=== PATIENT | male | born 1950 | race Caucasian/White ===

== ENCOUNTER → 2024-01-04 09:57 | Outpatient (CLI) | payer MEDICARE, SELFPAY | PROVIDERS: Visit Provider Nurse Practitioner Family | DX: R35.0 Frequency of micturition (principal) | CPT/HCPCS: 87077; 87086; 87147; 87186 ==

== ENCOUNTER 2024-01-09 19:24 | Emergency (ER) | payer MEDICARE, SELFPAY ==
[2024-01-09] VITALS (7 sets, daily range): BP systolic 137–160; BP diastolic 80–90; PULSE 67–118; RESP 18–23; TEMP 37.2–37.7; O2SAT 94–98; BMI 33.4
[2024-01-09 20:00] LABS: Add Manual Diff / Slide Review NO; Basophils Absolute Auto 100 /uL (0-100); Basophils Percent Auto 0.5 % (0-2); Eosinophils Absolute Auto 100 /uL (0-450); Eosinophils Percent Auto 0.3 % (2-4); Hematocrit 44.7 % (41-53); Hemoglobin 14.8 g/dL (13.5-17.5); Lymphocytes Absolute Auto 700 /uL (1100-4500); Lymphocytes Percent Auto 4.7 % (25-40); Mean Corpuscular HGB Conc 33.2 % (30-36); Mean Corpuscular Volume 87.3 fL (80-100); Monocytes Absolute Auto 1000 /uL (0-900); Monocytes Percent Auto 6.7 % (3-14); Neutrophils Absolute Auto 13400 /uL (1500-7000); Neutrophils Percent Auto 87.8 % (50-75); Platelet Count 342 X10^3/uL (150-400); Red Blood Cell Count 5.12 X10^6/uL (4.5-5.9); Red Cell Distribution Width 13.1 % (11.6-14.8); White Blood Cell Count 15.2 X10^3/uL (4.5-11.0)
--- NOTE | 2024-01-09 20:00 | ED.RECABL ---
HPI - Recheck/Abnormal Lab/Rx General Chief Complaint: Recheck/Abnormal Lab/Rx Stated Complaint: states UTI and feels crappy Time Seen by Provider: 01/09/24 19:29 Source: patient Mode of arrival: Ambulatory History of Present Illness HPI narrative: 73-year-old male presents for general malaise. He states that several days ago he was diagnosed with a UTI and given Macrobid, which he states he has been taking, but he still has frequency and does not feel like he is improving. States that he feels generally unwell. Also reporting lower abdominal pain. Patient states that he thinks that he may have an obstruction. Reports normal bowel movements Related Data Previous Rx's Medication Instructions Recorded nitrofurantoin 100 mg PO Q12H 7 days #14 caps 01/04/24 monohydrate/macrocrystals 100 mg capsule (Macrobid) cefpodoxime 200 mg tablet 200 mg PO Q12H #14 tabs 01/09/24 tamsulosin 0.4 mg capsule (Flomax) 0.4 mg PO DAILY #30 caps 01/09/24 fluconazole 150 mg tablet 150 mg PO DAILY #7 tabs 01/10/24 metformin 500 mg tablet 500 mg PO BID #60 tabs 01/10/24 Allergies Allergy/AdvReac Type Severity Reaction Status Date / Time No Known Drug Allergies Allergy Verified 01/09/24 19:28 Patient History Social History Smoking Status: Never smoker Smoking Status: Never smoker Exam Initial Vital Signs Initial Vital Signs: Vital Signs Temperature 98.9 F 01/09/24 19:29 Pulse Rate 67 01/09/24 19:29 Respiratory Rate 18 01/09/24 19:29 Blood Pressure 141/80 H 01/09/24 19:29 Pulse Oximetry 97 01/09/24 19:29 Oxygen Delivery Method Room Air 01/09/24 19:29 Const: Awake, alert, no acute distress, nontoxic appearing Cardiac: regular rate, regular rhythm RESP: unlabored, clear bilaterally, no wheezing GI: Soft, nontender, nondistended, no rebound, no guarding MSK: Atraumatic, full range of motion, pulses equal Skin: Warm, Dry, intact, no rashes Neuro: AO x3, CN II-XII grossly intact, moves all extremities Course Orders Ordered: ED Orders 01/09/24 19:43 UA Complete [Urinalysis and Microscopic] Stat Urine Culture Stat 01/09/24 19:45 CBC Auto Diff [Complete Blood Count AUTO DIFF] Stat CMP [Comprehensive Metabolic Panel] Stat 01/09/24 19:59 CT abdomen pelvis w con Stat Discontinued Medications Sodium Chloride (Normal Saline 0.9%) 1,000 mls @ 1,000 mls/hr IV BOLUS ONE Stop: 01/09/24 21:27 Last Infusion: 01/09/24 21:41 Dose: Infused Documented By: Admin: 01/09/24 20:38 Dose: 1,000 mls/hr Documented By: JANICE Ceftriaxone Sodium 2,000 mg/ (Sodium Chloride) 100 mls @ 200 mls/hr IV NOW ONE Stop: 01/09/24 21:09 Last Infusion: 01/09/24 22:03 Dose: Infused Documented By: Admin: 01/09/24 21:19 Dose: 200 mls/hr Documented By: YUMIKO Vital Signs Vital signs: Vital Signs - 8 hr 01/09/24 19:29 01/09/24 20:52 01/09/24 20:52 Temperature 98.9 F Pulse Rate 67 116 H Respiratory Rate 18 Blood Pressure 141/80 H 137/87 Pulse Oximetry 97 98 Oxygen Delivery Method Room Air 01/09/24 21:00 01/09/24 21:00 01/09/24 21:24 Temperature 99.9 F H Pulse Rate 111 H Respiratory Rate 22 Blood Pressure 154/90 H 160/80 H Pulse Oximetry Oxygen Delivery Method 01/09/24 21:24 01/09/24 21:30 01/09/24 21:30 Temperature Pulse Rate 117 H 118 H Respiratory Rate 20 23 Blood Pressure 141/87 H Pulse Oximetry 96 98 Oxygen Delivery Method 01/09/24 22:00 01/09/24 22:09 Temperature Pulse Rate 106 H 91 H Respiratory Rate 20 Blood Pressure Pulse Oximetry 94 94 Oxygen Delivery Method Room Air Room Air MDM - Recheck/Abnormal Lab/Rx Lab Data 01/09/24 19:45 01/09/24 19:45 Labs: Lab Results 01/09/24 01/09/24 Range/Units 19:43 19:45 WBC 15.2 H (4.5-11.0) X10^3/uL RBC 5.12 (4.5-5.9) X10^6/uL Hgb 14.8 (13.5-17.5) g/dL Hct 44.7 (41-53) % MCV 87.3 (80-100) fL MCH 29.0 (26-34) PG MCHC 33.2 (30-36) % RDW 13.1 (11.6-14.8) % Plt Count 342 (150-400) X10^3/uL Neut % (Auto) 87.8 H (50-75) % Lymph % (Auto) 4.7 L (25-40) % [place] % (Auto) 6.7 (3-14) % Eos % (Auto) 0.3 L (2-4) % Baso % (Auto) 0.5 (0-2) % Neut # (Auto) 00496 H (8864-1622) /uL Lymph # (Auto) 700 L (7244-8729) /uL [place] # (Auto) 1000 H (0-900) /uL Eos # (Auto) 100 (0-450) /uL Baso # (Auto) 100 (0-100) /uL Sodium 128 L (137-145) mmol/L Potassium 4.3 (3.4-5.1) mmol/L Chloride 91 L (98-107) mmol/L Carbon Dioxide 30 (22-32) mmol/L BUN 32 H (9-20) mg/dL Creatinine 1.12 (0.66-1.25) mg/dL Estimated GFR > 60 (>60) mL/min BUN/Creatinine Ratio 28.6 H (6-22) Glucose 543 H* (80-110) mg/dL Calcium 8.7 (8.4-10.2) mg/dL Total Bilirubin 0.9 (0.2-1.3) mg/dL AST 24 (17-59) IU/L ALT 20 (<50) IU/L Alkaline Phosphatase 185 H (38-126) U/L Total Protein 6.8 (6.3-8.2) g/dL Albumin 3.6 (3.5-5.0) g/dL Globulin 3.2 (1.7-4.1) g/dL Albumin/Globulin Ratio 1.1 (1.0-2.8) Urine Color Yellow Urine Appearance Cloudy Urine pH 5.5 (4.5-8.0) Ur Specific [place] <=1.005 (1.000-1.035) Urine Protein Negative (Negative) Urine Glucose (UA) 3+ H (Negative) g/dL Urine Ketones 1+ H (NEGATIVE) Urine Occult Blood 3+ H (Negative) Urine Nitrate Negative (Negative) Urine Bilirubin Negative (NEGATIVE) Urine Urobilinogen 1.0 (0.2) E.U./dL Ur Leukocyte Esterase 1+ H (NEGATIVE) Urine RBC 0-1/hpf (0-5/HPF) Urine WBC 30-100/hpf H (0-5/HPF) Ur Squamous Epith Cells None seen (0-5/HPF) Urine Bacteria Moderate (10-30) H (None) Urine Yeast 1-5/hpf H (None) Ur Culture Indicated? Specimen cultured Vol Urine Centrifuged 10ml (spun) Imaging Data CT scan - abdomen/pelvis: Radiologist's Impression: PROCEDURE: CT ABDOMEN PELVIS W CON INDICATIONS: 'I HAVE AN OBSTRUCTION' TECHNIQUE: After the administration of intravenous contrast, axial sections acquired from the lung bases to the pubic symphysis. Coronal and sagittal reformats were performed. For radiation dose reduction, the following was used: automated exposure control, adjustment of mA and/or kV according to patient size. COMPARISON: None. FINDINGS: Image quality: Diagnostic Lower chest: Bibasilar scarring/atelectasis. Normal heart size Liver: Unremarkable Gallbladder and biliary system: Nondilated. No discrete radiopaque gallstones Pancreas: Mildly atrophic parenchyma. No ductal dilation Spleen: Nonenlarged Adrenals: Right adrenal mild thickening Kidneys: 1 x 0.8 x 0.7 mm calcified stone in the right distal ureter with moderate upstream hydroureteronephrosis. There is a delayed nephrogram on the right. Bosniak 1 and 2 renal lesions are present, for which no dedicated followup is necessary per latest proposed guidelines. Vessels and lymph nodes: The main portal vein is patent. No abdominal aortic aneurysm or pathologic lymph nodes by size criteria. Bowel and peritoneum: No evidence of small bowel obstruction or pathologic ascites. Moderate fecal loading, including stool ball in the rectum. Body wall: Unremarkable Pelvis: Bladder is unremarkable. The prostate is heterogeneous and not well evaluated on this study Bones: Degenerative changes, no acute or suspicious finding. IMPRESSION: Obstructing right distal ureter stone measuring up to 1 cm with moderate upstream hydroureteronephrosis. Delayed nephrogram indicates obstructive nephropathy. Correlate with urinalysis for any superimposed infection. Other findings as above. Dictated by: Brian Jones M.D. on 01/09/2024 at 20:44 Approved by: Brian Jones M.D. on 01/09/2024 at 20:48 [facility] Narrative Medical decision making narrative: Persistent urinary frequency and lower abdominal pain despite being on Macrobid. Abdomen is soft, no peritoneal signs. I have very low suspicion for an intestinal obstruction, but we will order CT scan and laboratory work due to persistent symptoms. Laboratory work is significant for WBC count 15.2, hemoglobin 14.8, platelets 342, sodium 128, potassium 4.3, glucose 543, calculated anion gap of 7. Patient states that he has a known history of diabetes and use to take metformin a long time ago, but he has not seen a doctor for quite some time and no longer takes any medications for his diabetes. CT of the abdomen and pelvis shows a 1 cm stone on the right-hand side. Urinalysis shows WBCs, bacteria, yeast. Patient given a dose of Rocephin in the emergency department. Symptoms are well controlled. Patient was informed of his elevated glucose and the need for glucose monitoring. It is likely that his uncontrolled diabetes is contributing to him feeling poorly. Patient was given 1 L of fluids which should help to correct his hyperglycemia. Refill of patient's previously taken metformin sent to pharmacy, however I advised the patient that with his elevated glucose he may need to start insulin, however this would be done through his primary care doctor. Recommended close follow up with Urology for his stone. Discharge Plan Departure Patient Disposition: Home Clinical Impression: Kidney stone, Acute UTI, Acute hyperglycemia Instructions: DI for Kidney Stones, DI for Urinary Tract Infection (UTI) Prescriptions: New cefpodoxime 200 mg tablet 200 mg PO Q12H Qty: 14 0RF Rx Instructions: must administer with a meal/food tamsulosin [Flomax] 0.4 mg capsule 0.4 mg PO DAILY Qty: 30 0RF metformin 500 mg tablet 500 mg PO BID Qty: 60 0RF fluconazole 150 mg tablet 150 mg PO DAILY Qty: 7 0RF No Action nitrofurantoin monohyd/m-cryst [Macrobid] 100 mg capsule 100 mg PO Q12H 7 Days Qty: 14 0RF Rx Instructions: must administer with a meal/food Referrals: Jameson Lucas MD [Primary Care Provider] - Fausto Carrington MD [Physician] - Stand Alone Forms: Patient Portal/API
[2024-01-09 20:05] LABS: Bilirubin Urine UA NEGATIVE (NEGATIVE); Color Urine UA YELLOW; Glucose Urine UA 3+ g/dL (Negative); Ketones Urine UA 1+ (NEGATIVE); Leukocyte Esterase Urine UA 1+ (NEGATIVE); Nitrite Urine UA NEGATIVE (Negative); Occult Blood Urine UA 3+ (Negative); Protein Urine UA NEGATIVE (Negative); Specific Gravity Urine UA <=1.005 (1.000-1.035); pH Urine UA 5.5 (4.5-8.0)
[2024-01-09 20:06] LABS: Appearance Urine UA CLOUDY
[2024-01-09 20:14] LABS: Bacteria Urine Moderate (10-30); RBC Urine 0-1/HPF (0-5/HPF); Squamous Epithelial Cell Urine None Seen (0-5/HPF); Urine Volume 10mL (spun); WBC Urine 30-100/HPF (0-5/HPF)
[2024-01-09 20:14] LABS: Alanine Aminotransferase 20 IU/L (<50); Albumin 3.6 g/dL (3.5-5.0); Albumin Globulin Ratio 1.1 (1.0-2.8); Alkaline Phosphatase 185 U/L (38-126); Aspartate Aminotransferase 24 IU/L (17-59); BUN Creatinine Ratio 28.6 (6-22); Bilirubin Total 0.9 mg/dL (0.2-1.3); Blood Urea Nitrogen 32 mg/dL (9-20); Calcium 8.7 mg/dL (8.4-10.2); Carbon Dioxide 30 mmol/L (22-32); Chloride 91 mmol/L (98-107); Estimated Glomerular Filt Rate > 60 mL/min (>60); Globulin 3.2 g/dL (1.7-4.1); HEMOLYSIS < 15 (0-50); Potassium 4.3 mmol/L (3.4-5.1); Sodium 128 mmol/L (137-145); Total Protein 6.8 g/dL (6.3-8.2)
[2024-01-09 20:15] LABS: Culture Indicated Urine Specimen Cultured
[2024-01-09 20:16] LABS: Glucose 543 mg/dL (80-110)
[2024-01-09] MEDS: SODIUM CHLORIDE 0.9% 1,000 ML 1000 ML IV (20:38)
[2024-01-09] MEDS: cefTRIAXone 2,000 MG in SODIUM CHLORIDE 0.9% 100 ML 200 MG IV (21:19)
--- NOTE | 2024-01-09 21:26 | PC.NURSE ---
Per provider Elvis no blood cultures required at this time.
== END 2024-01-09 22:10 | disposition home or self-care (01) ==
PROVIDERS: Emergency Provider Emergency Medicine; PCP Family Medicine
DX: N20.0 Calculus of kidney (principal); N39.0 Urinary tract infection, site not specified; E11.65 Type 2 diabetes mellitus with hyperglycemia
CPT/HCPCS: 36415; 74177; 80053; 81001; 85025; 87077; 87086; 87147; 87186; 96365; 99284; J0696; Q9967

== ENCOUNTER → 2024-01-19 08:03 | Outpatient (CLI) | payer MEDICARE, SELFPAY ==
[2024-01-19 10:25] LABS: Appearance Urine UA SL CLOUDY; Bilirubin Urine UA NEGATIVE (NEGATIVE); Color Urine UA YELLOW; Glucose Urine UA 3+ g/dL (Negative); Ketones Urine UA 1+ (NEGATIVE); Leukocyte Esterase Urine UA 2+ (NEGATIVE); Nitrite Urine UA NEGATIVE (Negative); Occult Blood Urine UA 1+ (Negative); Protein Urine UA TRACE (Negative); Urobilinogen Urine UA 0.2 E.U./dL (0.2); pH Urine UA 5.5 (4.5-8.0)
[2024-01-19 10:29] LABS: Urine Volume 10mL (spun)
[2024-01-19 10:30] LABS: RBC Urine 1-5/HPF (0-5/HPF)
[2024-01-19 10:31] LABS: Bacteria Urine None Seen; Culture Indicated Urine Specimen Cultured; Squamous Epithelial Cell Urine 1-5 /HPF (0-5/HPF); WBC Urine 30-100/HPF (0-5/HPF)
[2024-01-19 14:09] LABS: Hemoglobin A1C% w Est Avg Glu 11.9 % (4.0-6.0)
[2024-01-19 14:22] LABS: Cholesterol 142 mg/dL (140-199); HDL Cholesterol 42 mg/dL (40-60); LDL Cholesterol Calculated 78 mg/dL (<100); Triglycerides 112 mg/dL (35-150)
[2024-01-19 16:32] LABS: Creatinine Urine Random 55.41 mg/dL
[2024-01-19 18:25] LABS: Hep C Virus Ab w/Reflex Quant NEGATIVE s/c (NEGATIVE)
== END ==
PROVIDERS: PCP Family Medicine; Referring Provider Family Medicine; Visit Provider Family Medicine
DX: E11.9 Type 2 diabetes mellitus without complications (principal); I10 Essential (primary) hypertension; R73.9 Hyperglycemia, unspecified; N20.0 Calculus of kidney; N39.0 Urinary tract infection, site not specified
CPT/HCPCS: 36415; 80061; 81001; 82043; 82570; 83036; 86803; 87077; 87086; 87186

== ENCOUNTER → 2024-01-31 11:24 | Outpatient (CLI) | payer MEDICARE, SELFPAY ==
[2024-01-31 12:31] LABS: Add Manual Diff / Slide Review NO; Basophils Absolute Auto 100 /uL (0-100); Basophils Percent Auto 1.2 % (0-2); Eosinophils Absolute Auto 500 /uL (0-450); Eosinophils Percent Auto 7.9 % (2-4); Hematocrit 40.6 % (41-53); Hemoglobin 13.9 g/dL (13.5-17.5); Lymphocytes Absolute Auto 1000 /uL (1100-4500); Lymphocytes Percent Auto 17.5 % (25-40); Mean Corpuscular HGB Conc 34.1 % (30-36); Mean Corpuscular Hemoglobin 29.4 PG (26-34); Mean Corpuscular Volume 86.1 fL (80-100); Monocytes Absolute Auto 400 /uL (0-900); Monocytes Percent Auto 6.6 % (3-14); Neutrophils Absolute Auto 3900 /uL (1500-7000); Neutrophils Percent Auto 66.8 % (50-75); Platelet Count 224 X10^3/uL (150-400); Red Blood Cell Count 4.72 X10^6/uL (4.5-5.9); Red Cell Distribution Width 13.3 % (11.6-14.8); White Blood Cell Count 5.8 X10^3/uL (4.5-11.0)
[2024-01-31 12:57] LABS: Alanine Aminotransferase 15 IU/L (<50); Albumin 3.7 g/dL (3.5-5.0); Albumin Globulin Ratio 1.2 (1.0-2.8); Alkaline Phosphatase 95 U/L (38-126); Aspartate Aminotransferase 16 IU/L (17-59); BUN Creatinine Ratio 17.8 (6-22); Bilirubin Total 0.8 mg/dL (0.2-1.3); Blood Urea Nitrogen 18 mg/dL (9-20); Calcium 8.7 mg/dL (8.4-10.2); Carbon Dioxide 32 mmol/L (22-32); Chloride 97 mmol/L (98-107); Estimated Glomerular Filt Rate > 60 mL/min (>60); Globulin 3.2 g/dL (1.7-4.1); Glucose 288 mg/dL (80-110); HEMOLYSIS < 15 (0-50); Potassium 3.8 mmol/L (3.4-5.1); Sodium 136 mmol/L (137-145); Total Protein 6.9 g/dL (6.3-8.2)
[2024-01-31 13:20] LABS: Prostate Specific Antigen Scrn 2.66 ng/mL (0.1-4.0)
== END ==
PROVIDERS: PCP Family Medicine; Referring Provider Family Medicine; Visit Provider Family Medicine
DX: Z12.5 Encounter for screening for malignant neoplasm of prostate (principal); I10 Essential (primary) hypertension; E11.9 Type 2 diabetes mellitus without complications; E11.29 Type 2 diabetes mellitus with other diabetic kidney complication; R80.9 Proteinuria, unspecified
CPT/HCPCS: 36415; 80053; 85025; G0103

== ENCOUNTER → 2024-02-15 10:53 | Outpatient (CLI) | payer MEDICARE, SELFPAY | PROVIDERS: PCP Family Medicine; Visit Provider Urology | DX: N39.0 Urinary tract infection, site not specified (principal); R39.9 Unspecified symptoms and signs involving the genitourinary system | CPT/HCPCS: 87086 ==

== ENCOUNTER → 2024-02-15 12:23 | Outpatient (CLI) | payer MEDICARE, SELFPAY ==
--- NOTE | 2024-02-15 12:30 | DI.RAD.S_ITS ---
PROCEDURE: XR KUB INDICATIONS: Kidney Stones TECHNIQUE: One view of the abdomen acquired. COMPARISON: [facility], CT, CT ABDOMEN PELVIS W CON, 01/09/2024, 20:19. FINDINGS: Surgical changes and devices: None. Bowel: Bowel gas pattern is nonobstructive. Moderate fecal stasis throughout the colon is seen. No gross free air. Soft tissues: No suspicious abdominal calcifications. Visualized solid organ contours appear normal in size. Bones: No suspicious bony lesions. IMPRESSION: No gross renal calcifications are seen. Moderate constipation. No free air. Dictated by: Hamlet Arana M.D. on 02/15/2024 at 15:13 Approved by: Hamlet Arana M.D. on 02/15/2024 at 15:13
== END ==
LOC: RAD 12:29
PROVIDERS: PCP Family Medicine; Referring Provider Urology; Visit Provider Urology
DX: N20.0 Calculus of kidney (principal); N39.0 Urinary tract infection, site not specified; R39.9 Unspecified symptoms and signs involving the genitourinary system; K59.00 Constipation, unspecified
CPT/HCPCS: 74018; 87077; 87086; 87147; 87186

== ENCOUNTER → 2024-03-01 09:08 | Outpatient (CLI) | payer MEDICARE, SELFPAY | PROVIDERS: PCP Family Medicine; Visit Provider Urology | DX: N39.0 Urinary tract infection, site not specified (principal); N20.1 Calculus of ureter; N40.1 Benign prostatic hyperplasia with lower urinary tract symptoms; R39.12 Poor urinary stream; Z87.440 Personal history of urinary (tract) infections | CPT/HCPCS: 81002; 87086; 99214 ==

== ENCOUNTER 2024-03-05 07:32 | Day surgery (SDC) | payer MEDICARE, SELFPAY ==
--- NOTE | 2024-03-05 | DI.RAD.S_ITS ---
PROCEDURE: XR ABDOMEN 1V INDICATIONS: RIGHT STENT PLACEMENT TECHNIQUE: Right flank intra-operative images acquired by the Urology service. COMPARISON: [facility], CT, CT ABDOMEN PELVIS W CON, 01/09/2024, 20:19. FINDINGS: IMPRESSION: Fluoroscopic guidance utilized for a right-sided nephroureteral stent placement. Dictated by: Deyvi Rowe M.D. on 03/05/2024 at 10:46 Approved by: Deyvi Rowe M.D. on 03/05/2024 at 10:46
[2024-03-05] MEDS: LACTATED RINGERS 1,000 ML 42 ML IV (08:11)
[2024-03-05] MEDS: ACETAMINOPHEN 325 MG TABLET 975 MG PO (08:13)
[2024-03-05 08:15] VITALS: BP 142/82; PULSE 66; RESP 16; TEMP 36.5; O2SAT 99; BMI 30.2
--- NOTE | 2024-03-05 08:49 | PM.PREOP ---
Pre-operative Note COVID-19 COVID-19 status: Not tested Interval Note History & Physical reviewed/Exam performed by Physician: Yes Changes to H&P: No
[2024-03-05] MEDS: CIPROFLOXACIN 400 MG/200 ML PIGGYBACK 200 MG IV (09:20)
--- NOTE | 2024-03-05 09:38 | SUR.OPER ---
Lithotomy on padded OR bed, head on pillow, arms secured on padded arm boards at <90 degrees abduction. Legs secured in padded yellow fins stirrups.
[2024-03-05 10:27] VITALS: BP 154/90; PULSE 76; RESP 16; TEMP 36.3; O2SAT 97
--- NOTE | 2024-03-05 10:27 | P.OP_ITS ---
Procedure & Clinicians Procedure: Right ureteroscopy with laser lithotripsy and basketing of stone fragments cystoscopy with right ureteral stent placement Same procedure as scheduled: Yes Indications: This 73-year-old male presented with complaints of colic hematuria through imaging was found to have a distal 1 cm right ureteral calculus. He presents at this time for treatment of the stone. Surgeon: Arron Verdin Click Yes if Unassisted: Yes Anesthesia Type: General Operative Notes Findings: Had cystoscopy urethral meatus is normal urethra is normal along its length with normal mucosa. Sphincter as well coapted prostate shows moderate obstructive character. The right and left ureteral orifice were in normal position. The bladder mucosa was normal and there were no other adverse findings in the bladder. 1 cm plus stone was noted in the distal right ureter proximally to to 2-1/2 cm cephalad from the orifice. No other abnormality was noted in the ureter that was visualized. It was visualized up to the level of the vessels the stone was fragmented in no large fragments remained in the ureter. In all fragments had been evacuated from the bladder. A 7 [place] by multi length stent was left in good position in the right collecting system without a string. Closure Type: not applicable Specimen(s): other (Right ureteral stone fragments) Prosthetic devices, grafts, tissues, transplants, or devices: 7 [place] by multi length right ureteral stent with no string Estimated Blood Loss (mL): 5 Blood products transfused: none Procedure in detail: Procedure in detail: After informed consent was obtained, the patient was identified brought to the operating room where he has placed in a supine position on the table. Once there anesthesia was induced and maintained. Ensuring an adequate level of anesthesia patient was transitioned to the lithotomy position where he was prepped, draped, prepared for Transurethral procedure. After prepping, draping, time-out, administration of antibiotics and ensuring an adequate level of anesthesia a 22 [place] cystoscope was passed through the urethra prostate and into the bladder under direct vision cystoscopy was then performed. The right ureteral orifice was once again identified and under fluoroscopic and direct visualization the hybrid guidewire was passed up into the collecting system. Once there the scope was backed out and this wire was reserved as a safety wire. The cystoscope was once again inserted and a 2nd wire passed up into the collecting system under fluoroscopic visualization. This wire was left in place the bladder was partially drained the cystoscope backed out and the wire left in place as a working wire. The semi-rigid ureteral scope was then passed over the wire up to the level of the stone. The wire was then backed out laser fiber inserted and the stone fragmented till only small fragments remained. With this done the laser was placed in standby and removed. A [place] in [place] basket was then inserted and deployed and fragments were grasped brought into the bladder and dropped repeatedly until the ureter was cleared of the fragments. There was a small amount of dusting left within the ureter. But no large fragments remained. With the ureter cleared the ureteral scope was removed under direct vision and the cystoscope reinserted in the fragments evacuated from the bladder. At this point the cystoscope was removed the safety wire backloaded and the cystoscope reinserted. The stent was then passed over the wire into the collecting system position in the renal pelvis under fluoroscopic visualization in the bladder under direct vision. With the stent in good position the wire was removed. The nylon harness was then removed in the stent left in good position. At this point with all fragments removed the stent in good position of the bladder was drained the scope was removed. The patient was then awakened transferred to the postanesthesia care unit for recovery having tolerated the procedure well. There were no complications Complications: none Post-operative Condition: stable Disposition: PACU Plan for aftercare: Follow-up my office in approximately 10 days with KUB for preparation for stent removal.
[2024-03-05 10:32] VITALS: BP 122/77; PULSE 71; RESP 18; O2SAT 95
[2024-03-05 10:37] VITALS: BP 119/76; PULSE 64; RESP 12; TEMP 36.3; O2SAT 96
[2024-03-05 10:44] VITALS: BP 118/79; PULSE 65; RESP 12; O2SAT 96
[2024-03-05 10:48] VITALS: BP 118/76; PULSE 63; RESP 12; TEMP 36.3; O2SAT 98
[2024-03-18 19:07] LABS: Ca oxalate dihydrate 20 % (.); Ca oxalate monohydr 80 % (.); Size 4x4 mm (.)
== END 2024-03-05 11:29 | disposition home or self-care (01) ==
PROVIDERS: PCP Family Medicine; Referring Provider Urology; Visit Provider Urology
PROC: 0TF68ZZ Fragmentation in Right Ureter, Via Natural or Artificial Opening Endoscopic (ICD-10-PCS; CPT 52353; principal; 2024-03-05 09:15)
DX: N20.1 Calculus of ureter (principal); N40.1 Benign prostatic hyperplasia with lower urinary tract symptoms; R39.12 Poor urinary stream; Z87.440 Personal history of urinary (tract) infections
CPT/HCPCS: 52356; 74018; 76000; 82365; 82962; C1771; J0330; J0744; J2405; J2704; J3010

== ENCOUNTER → 2024-03-13 11:37 | Outpatient (CLI) | payer MEDICARE, SELFPAY ==
--- NOTE | 2024-03-13 11:52 | DI.RAD.S_ITS ---
PROCEDURE: XR KUB INDICATIONS: P/o stent placement, kidney stone TECHNIQUE: One view of the abdomen acquired. COMPARISON: [facility], CT, CT ABDOMEN PELVIS W CON, 01/09/2024, 20:19. [facility], CR, XR KUB, 02/15/2024, 12:31. FINDINGS: Surgical changes and devices: Double-J ureteral stent projects over the right hemipelvis with proximal pigtail in the region of the kidney and distal pigtail in the region of the bladder. Bowel: Bowel gas pattern is normal. Soft tissues: No radiographic evidence of nephrolithiasis. No suspicious abdominal calcifications. Visualized solid organ contours appear normal in size. Bones: No suspicious bony lesions. Degenerative changes of the lumbar spine and bilateral hips. IMPRESSION: Double-J ureteral stent appears appropriately positioned. No radiographic evidence of nephrolithiasis. If clinically warranted, cross-sectional imaging can be performed for further evaluation. Dictated by: Isha Rodriguez M.D. on 03/13/2024 at 15:00 Approved by: Isha Rodriguez M.D. on 03/13/2024 at 15:02
== END ==
PROVIDERS: PCP Family Medicine; Referring Provider Urology; Visit Provider Urology
DX: N20.1 Calculus of ureter (principal); Z96.0 Presence of urogenital implants
CPT/HCPCS: 74018

== ENCOUNTER → 2024-03-15 14:01 | Outpatient (CLI) | payer MEDICARE, SELFPAY | PROVIDERS: PCP Family Medicine; Visit Provider Urology | DX: N39.0 Urinary tract infection, site not specified (principal) | CPT/HCPCS: 87086 ==

== ENCOUNTER → 2024-03-20 08:33 | Outpatient (CLI) | payer MEDICARE, SELFPAY | PROVIDERS: PCP Family Medicine; Visit Provider Urology | DX: N39.0 Urinary tract infection, site not specified (principal); Z87.440 Personal history of urinary (tract) infections; Z96.0 Presence of urogenital implants | CPT/HCPCS: 52310; 81002; 87077; 87086; 87147; 87186 ==